=== PATIENT | male | born 1995 | race Caucasian/White ===

== ENCOUNTER 2017-01-05 20:40 | Emergency (ER) ==
[2017-01-05 20:47] VITALS: BP 112/65; TEMP 98.6; BMI 19.2
[2017-01-05] MEDS ORDERED: TORADOL IM STA (20:49)
--- NOTE | 2017-01-05 20:51 | ED.PDOC ---
General ED Provider: Dr. SANJUANA OSHEA Chief Complaint: Back Pain Stated Complaint: lower back pain since today , no injury, lift heavy all the time at work. does not radiate to legs Time Seen by Physician: 20:49 Mode of Arrival: Walk-In Information Source: Patient Nursing and Triage Documentation Reviewed and Agree: Yes Musculoskeletal Complaint Exam - Back Pain Complaint/Exam Mechanism of Injury: Reports: No known trauma Symptoms Are: Still present Timing: Constant Episodes Lasting: Hours Initial Severity: Mild Current Severity: Mild Location: Reports: Discrete Character: Reports: Aching Aggravating: Reports: Movements, Lifting Alleviating: Reports: None Associated Signs and Symptoms: Denies: Swelling, Redness, Bruising, Fever, Weakness, Numbness, Tingling, Abdominal pain, Flank pain, Bladder incontinence, Bowel incontinence, Weight loss, Pain with weight bearing Related History: Reports: Similar episode TAD Risk Factors: Reports: None AAA Risk Factors: Reports: None Cauda Equina Risk Factors: Reports: None Epidural Abcess Risk Factors: Reports: None Related Surgical History: Reports: None Focal Tenderness: Yes Paraspinal Muscle Tenderness: Yes Paraspinal Muscle Spasm: Yes Scoliosis: No Lordosis: No Kyphosis: No SLR Test: Right Negative, Left Negative Hip Motion Testing Pain: Right Negative, Left Negative Focal Weakness: Present: None Focal Sensory Loss: Present: None Gait: Present: Normal Differential Diagnoses: Strain Review of Systems - Review Of Systems Constitutional: Reports: No symptoms Eyes: Reports: No symptoms Ears, Nose, Mouth, Throat: Reports: No symptoms Respiratory: Reports: No symptoms Cardiac: Reports: No symptoms GI: Reports: No symptoms : Reports: No symptoms Musculoskeletal: Reports: Back pain Skin: Reports: No symptoms Neurological: Reports: No symptoms Endocrine: Reports: No symptoms Hematologic/Lymphatic: Reports: No symptoms All Other Systems: Reviewed and Negative Past Medical History - Past Medical History Previously Healthy: Yes Endocrine: Reports: None Cardiovascular: Reports: None Respiratory: Reports: None Hematological: Reports: None Gastrointestinal: Reports: None Genitourinary: Reports: None Neuro/Psych: Reports: None Musculoskeletal: Reports: None Cancer: Reports: None - Surgical History General Surgical History: Reports: None - Family History Family History: Reports: None - Social History Smoking Status: Current every day smoker, Heavy tobacco smoker Smoking Cessation Counseling Time: > 10 min Hx Substance Use: No Alcohol Screening: Occasionally - Immunizations Tetanus Shot up to Date: No Physical Exam - Physical Exam Appearance: Well-appearing, No pain distress, Well-nourished Eyes: LEONARDO, EOMI, Conjunctiva clear ENT: Ears normal, Nose normal, Oropharynx normal Respiratory: Airway patent, Breath sounds clear, Breath sounds equal, Respirations nonlabored Cardiovascular: RRR, Pulses normal, No rub, No murmur GI/: Soft, Nontender, No masses, Bowel sounds normal, No Organomegaly Musculoskeletal: Normal strength, ROM intact, No edema, No calf tenderness Skin: Warm, Dry, Normal color Neurological: Sensation intact, Motor intact, Reflexes intact, Cranial nerves intact, Alert, Oriented Psychiatric: Affect appropriate, Mood appropriate Interpretation - Radiology Interpretation Radiology Interpretation By: ED Physician Radiology Results: Negative Critical Care Note - Critical Care Note Total Time (mins): 0 Course - Course Orders, Labs, Meds: Orders Category Date Time Status Ketorolac Tromethamine [Toradol] MEDS 01/05/17 20:49 Discontinued 30 mg IM ONCE STA LUMBAR SPINE, 2 OR 3 VIEWS Stat RADS 01/05/17 20:49 Taken Medications Discontinued Medications Generic Name Dose Route Start Last Admin Trade Name Freq PRN Reason Stop Dose Admin Ketorolac Tromethamine 30 mg 01/05/17 20:49 01/05/17 21:09 Toradol IM 01/05/17 20:50 30 mg ONCE STA Administration Vital Signs: Temp Pulse Resp BP Pulse Ox 01/05/17 20:42 98.6 F 111 H 18 112/65 97 Departure - Departure Time of Disposition: 21:27 Disposition: HOME SELF-CARE Discharge Problem: Backache Instructions: Low Back Strain (ED) Condition: Stable Pt referred to PMD for follow-up: Yes Additional Instructions: rest hot pack f/u at [facility] Prescriptions: Prednisone 5 mg PO BIDWM #14 tablet Tramadol HCl 50 mg PO BID #14 tablet Allergies/Adverse Reactions: Allergies No Known Allergies Allergy (Unverified 01/05/17 20:48) Home Medications: Ambulatory Orders Prednisone 5 mg PO BIDWM #14 tablet 01/05/17 Tramadol HCl 50 mg PO BID #14 tablet 01/05/17 Disposition Discussed With: Patient, Family
--- NOTE | 2017-01-05 21:31 | DI ---
Exam: Lumbar spine three-view History: Back pain FINDINGS: Lumbar spine shows normal alignment. Vertebral body height is maintained. No fracture l rajan are suspicious bony lesions are seen. No degenerative changes. Sacrum appears intact. Impression: Normal lumbar spine radiograph
== END 2017-01-05 21:32 | disposition home or self-care (01) ==
LOC: ED 20:40
DX: M54.5 Low back pain (principal); F17.210 Nicotine dependence, cigarettes, uncomplicated
CPT/HCPCS: 96372; 99282

== ENCOUNTER 2017-02-28 11:48 | Emergency (ER) ==
[2017-02-28 11:52] VITALS: BP 120/81; TEMP 98; BMI 19.9
[2017-02-28 12:39] LABS: BASOPHILS # (AUTO) 0.1 K/uL (0-0.2); BASOPHILS % (AUTO) 0.7 % (0.0-3.0); EOSINOPHILS # (AUTO) 0.1 K/ul (0.0-0.7); HEMATOCRIT 48.5 % (42.0-52.0); IMMATURE GRANULOCYTE % (AUTO) 0.3 % (0.0-5.0); LYMPHOCYTES # (AUTO) 1.2 K/uL (0.60-3.4); LYMPHOCYTES % (AUTO) 17.2 (10.0-50.0); MEAN CORPUSCULAR HEMOGLOBIN 32.9 pg (27.0-31.0); MEAN CORPUSCULAR HGB CONC 35.1 (31.8-35.4); MEAN CORPUSCULAR VOLUME 93.8 fl (80.0-94.0); MONOCYTES # (AUTO) 0.7 K/uL (0.4-2.0); MONOCYTES % (AUTO) 9.4 (0-10); NEUTROPHILS # (AUTO) 4.9 K/ul (2.0-6.9); NEUTROPHILS % (AUTO) 71.4; PLATELET COUNT 314 10^3/uL (140-440); RED BLOOD COUNT 5.17 10^6/ul (4.70-6.10)
[2017-02-28 12:59] LABS: ACETAMINOPHEN < 3 ug/ml (10-30); ALANINE AMINOTRANSFERASE 12 U/L (12-78); ALBUMIN 4.4 g/dL (3.4-5.0); ALBUMIN/GLOBULIN RATIO 1.33; ALKALINE PHOSPHATASE 69 U/L (50-136); ANION GAP 13.4; ASPARTATE AMINO TRANSFERASE 17 U/L (15-37); BLOOD UREA NITROGEN 10 mg/dL (7-18); BUN/CREATININE RATIO 10.52; CALCIUM 9.8 mg/dL (8.2-10.2); CARBON DIOXIDE 26 mmol/L (21-32); CHLORIDE 104 mmol/L (98-107); CREATININE 0.95 mg/dL (0.60-1.10); GLUCOSE 92 mg/dL (70-100); POTASSIUM 4.4 mmol/L (3.5-5.1); SALICYLATE < 5.0 mg/dL (2.8-20.0); SODIUM 139 mmol/L (136-145); TOTAL PROTEIN 7.7 g/dL (6.4-8.2)
[2017-02-28 13:38] LABS: BILIRUBIN,URINE Negative (NEGATIVE); KETONES,URINE Negative (NEGATIVE); LEUKOCYTE ESTERASE ,URINE Negative (NEGATIVE); NITRITE,URINE Negative (NEGATIVE); PH,URINE 6.5 (5-9); PROTEIN,URINE Negative (NEGATIVE); URINE, BLOOD Negative (NEGATIVE)
[2017-02-28 13:40] LABS: ADD URINE MICROSCOPIC NO
[2017-02-28 13:48] LABS: COCAIN SCREEN,URINE NEGATIVE (NEGATIVE)
--- NOTE | 2017-02-28 13:49 | ED.PDOC ---
General ED Provider: Dr. KOLTON MONZON Chief Complaint: Psychiatric Complaint Stated Complaint: depressed Time Seen by Physician: 12:00 (s) Mode of Arrival: Walk-In Information Source: Patient Exam Limitations: No limitations Nursing and Triage Documentation Reviewed and Agree: Yes Psychological Complaint Exam - Psychiatric Complaint/Exam Patient Complains Of: Present: Depression. Absent: Suicidal thoughts, Suicidal gestures Onset/Duration: today girlfriend left her he is depressed Symptoms Are: Still present Timing: Constant Initial Severity: Mild Current Severity: Mild Character: Present: Depressed, Anxious Aggravating: Reports: None Associated Signs And Symptoms: Denies: Hostile, Confused, Hallucinating, Paranoid behavior, Sleep disturbance, Appetite change Related History: Reports: Recent stressors. Denies: Suicidal thoughts, Suicidal plan, Suicidal gestures, Homicidal plan, Homicidal gestures, Prior attempts, Drug ingestion Completed Suicide Risk Factors: None Patient In Custody Of Police: No Social Withdrawal Present: No Social Isolation Present: No Prior Suicide Attempt: No Injury From Prior Suicide Attempt: No Related Surgical History: Reports: None Patient Uncooperative For Exam: No Mood: Present: Depressed Review of Systems - Review Of Systems Constitutional: Reports: No symptoms Eyes: Reports: No symptoms Ears, Nose, Mouth, Throat: Reports: No symptoms Respiratory: Reports: No symptoms Cardiac: Reports: No symptoms GI: Reports: No symptoms : Reports: No symptoms Musculoskeletal: Reports: No symptoms Skin: Reports: No symptoms Neurological: Reports: Depressed Endocrine: Reports: No symptoms Hematologic/Lymphatic: Reports: No symptoms All Other Systems: Reviewed and Negative Past Medical History - Past Medical History Previously Healthy: Yes Endocrine: Reports: None Cardiovascular: Reports: None Respiratory: Reports: None Hematological: Reports: None Gastrointestinal: Reports: None Genitourinary: Reports: None Neuro/Psych: Reports: None Musculoskeletal: Reports: None Cancer: Reports: None - Surgical History General Surgical History: Reports: None - Family History Family History: Reports: None - Social History Smoking Status: Current every day smoker, Heavy tobacco smoker Hx Substance Use: No Alcohol Screening: Occasionally Physical Exam - Physical Exam Appearance: Well-appearing, No pain distress, Well-nourished Eyes: LEONARDO, EOMI, Conjunctiva clear ENT: Ears normal, Nose normal, Oropharynx normal Respiratory: Airway patent, Breath sounds clear, Breath sounds equal, Respirations nonlabored Cardiovascular: RRR, Pulses normal, No rub, No murmur GI/: Soft, Nontender, No masses, Bowel sounds normal, No Organomegaly Musculoskeletal: Normal strength, ROM intact, No edema, No calf tenderness Skin: Warm, Dry, Normal color Neurological: Sensation intact, Motor intact, Reflexes intact, Cranial nerves intact, Alert, Oriented Psychiatric: Affect appropriate, Mood appropriate Critical Care Note - Critical Care Note Total Time (mins): 0 Course - Course Hematology/Chemistry: 02/28/17 12:32 02/28/17 12:32 Orders, Labs, Meds: Lab Review 02/28/17 02/28/17 12:32 13:30 WBC 6.90 RBC 5.17 Hgb 17.0 Hct 48.5 MCV 93.8 MCH 32.9 H MCHC 35.1 RDW Coeff of Marian 13.2 Plt Count 314 Immature Gran % (Auto) 0.3 Neut % (Auto) 71.4 Lymph % (Auto) 17.2 Hunt % (Auto) 9.4 Eos % (Auto) 1.0 Baso % (Auto) 0.7 Immature Gran # (Auto) 0.0 Neut # 4.9 Lymph # 1.2 Hunt # 0.7 Eos # 0.1 Baso # 0.1 Sodium 139 Potassium 4.4 Chloride 104 Carbon Dioxide 26 Anion Gap 13.4 BUN 10 Creatinine 0.95 Estimated GFR (MDRD) 100.00 BUN/Creatinine Ratio 10.52 Glucose 92 Calcium 9.8 Total Bilirubin 1.20 AST 17 ALT 12 Alkaline Phosphatase 69 Total Protein 7.7 Albumin 4.4 Globulin 3.3 Albumin/Globulin Ratio 1.33 Urine Color Yellow Urine Clarity Clear Urine pH 6.5 Ur Specific [place] 1.020 Urine Protein Negative Urine Glucose (UA) Negative Urine Ketones Negative Urine Blood Negative Urine Nitrite Negative Urine Bilirubin Negative Urine Urobilinogen 0.2 Ur Leukocyte Esterase Negative Salicylate Level mg/dL < 5.0 Acetaminophen < 3 L Plasma/Serum Alcohol < 10.0 Orders Category Date Time Status EKG-(ED ONLY) Stat CARDIO 02/28/17 12:20 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 02/28/17 12:20 Active ACETAMINOPHEN Stat LAB 02/28/17 12:32 Completed BLOOD ALCOHOL Stat LAB 02/28/17 12:32 Completed CBC W/ AUTO DIFF Stat LAB 02/28/17 12:32 Completed COMPREHENSIVE METABOLIC PANEL Stat LAB 02/28/17 12:32 Completed DRUG SCREEN, URINE, RAPID Stat LAB 02/28/17 13:30 Received SALICYLATE Stat LAB 02/28/17 12:32 Completed URINALYSIS C & S IF INDICATED Stat LAB 02/28/17 13:30 Completed Vital Signs: Temp Pulse Resp BP Pulse Ox 02/28/17 11:49 98.0 F 107 H 16 120/81 98 Departure - Departure Time of Disposition: 13:49 Disposition: HOME SELF-CARE Discharge Problem: Depression Instructions: Depression (ED) Condition: Good Pt referred to PMD for follow-up: No Additional Instructions: Please call your Family Physician as soon as possible to schedule a follow-up appointment. Allergies/Adverse Reactions: Allergies No Known Allergies Allergy (Unverified 02/28/17 11:52) Home Medications: Ambulatory Orders 1 [No Reported Medications] 02/28/17 Discharge Problem: Depression Qualifiers: Depression Type: unspecified Qualifier Code: (F32.9) Major depressive disorder , single episode, unspecified
== END 2017-02-28 13:56 | disposition home or self-care (01) ==
LOC: ED 11:48
DX: F32.9 Major depressive disorder, single episode, unspecified (principal); F17.210 Nicotine dependence, cigarettes, uncomplicated
CPT/HCPCS: 36415; 80053; 80306; 80307; 81001; 85025; 93005; 93010; 99283